=== PATIENT | female | born 1985 | race Asian ===

== ENCOUNTER → 2017-02-03 | Outpatient (CLI) | payer BC | LOC: FIMAGING 14:33 | PROVIDERS: ATTEND Obstetrics & Gynecology | DX: Z34.02 Encounter for supervision of normal first pregnancy, second trimester (principal); Z3A.19 19 weeks gestation of pregnancy ==

== ENCOUNTER → 2017-05-28 | Outpatient (CLI) | payer BC | LOC: FIMAGING 14:59 | PROVIDERS: ATTEND Obstetrics & Gynecology ==